=== PATIENT | male | born 1995 | race Caucasian/White ===

== ENCOUNTER → 2024-03-09 | Outpatient (CLI) | payer OTHER ==
[~2024-03-09] MED LIST: AMOCLA875 PO; ATOM25; CEPH250A PO; IBUP600 PO; METPRE4DP PO; Nizoral15 GM TOP; Norco 5-325 Ta1 EACH PO; Zithromax250 MG PO; [UNRECOGNIZED DRUG - REMARK]
== END ==
LOC: LAB SHORT 09:00
DX: K21.9 Gastro-esophageal reflux disease without esophagitis (principal)
CPT/HCPCS: 87338